=== PATIENT | female | born 1950 | race Hispanic/Latino ===

== ENCOUNTER → 2017-04-21 | Outpatient (CLI) | payer MEDICARE ==
--- NOTE | 2017-04-21 11:14 | Diagnostic Imaging Report ---
PROCEDURE: Frontal and lateral views of the chest. COMPARISON: None. INDICATIONS: WHEEZING, SOB FINDINGS: Lines/tubes: None. Lungs: The lungs are well inflated. Increased peripheral lung markings, likely fibrotic changes. Increased left basilar hazy opacification. Possible mild interstitial edema. Pleura: There is no pleural effusion or pneumothorax. Heart and mediastinum: Enlarged cardiomediastinal silhouette. Bones: No acute bony abnormality. Degenerative changes in the spine. IMPRESSION: Increased peripheral lung markings, suggestive of fibrotic changes. Possible mild interstitial edema. Increased left basilar hazy opacification which could represent atelectasis and/or pneumonia in the appropriate clinical setting. Dictated by: Yosi Sargent M.D. on 04/21/2017 at 11:23 Electronically approved by: Yosi Sargent M.D. on 04/21/2017 at 11:23
== END ==
LOC: RAD 10:13
PROVIDERS: ATTEND Family Medicine
DX: J20.9 Acute bronchitis, unspecified (principal)
CPT/HCPCS: 71046

== ENCOUNTER → 2017-11-16 | Outpatient (CLI) | payer MEDICARE ==
[~2017-11-16] MED LIST: IOPAMIDOL 370 MG/ML 200 ML INFUS..BTL INJ ONE; SODIUM CHLORIDE 0.9% 50ML 50 ML ONE
[2017-11-16 17:22] LABS: BLOOD UREA NITROGEN 12 mg/dL (7-26); BUN/CREATININE RATIO 17 (6-25); CREATININE, SERUM 0.72 mg/dL (0.57-1.11); EST GLOMERULAR FILTRATION RATE > 60 ML/MIN (60-)
--- NOTE | 2017-11-16 21:22 | Diagnostic Imaging Report ---
EXAMINATION: CT scan of the chest with contrast. TECHNIQUE: Helical CT images of the chest were performed from the lung apices to the level of the adrenal glands after the intravenous administration of 100 cc of Isovue 300. Coronal and sagittal reformatted images were obtained. Dose modulation, iterative reconstruction, and/or weight based adjustment of the mA/kV was utilized to reduce the radiation dose to as low as reasonably achievable. COMPARISON: None. CLINICAL HISTORY:Shortness of breath chest discomfort. DISCUSSION: LINES/TUBES: None. LUNGS AND AIRWAYS: Diffuse interstitial lung disease with architectural distortion, subpleural reticulations, scattered groundglass opacities, and subpleural honeycombing in the lower lung. PLEURA: No pneumothorax or pleural effusions. HEART AND MEDIASTINUM: The thyroid gland is normal. Heart size is normal.. LYMPH NODES: Prominent mediastinal lymph nodes. ABDOMEN: Abdomen unremarkable. BONES AND SOFT TISSUES: Skeletal hyperostosis. IMPRESSION: Diffuse interstitial pulmonary fibrosis with subpleural honeycombing. No pulmonary disease. Discussed with Dr. Mcdonald at approximately 7:30 PM. Signed by: Dr. Prem Ramirez M.D. on 11/16/2017 7:48 PM
== END ==
LOC: CT 16:43
PROVIDERS: ATTEND Family Medicine
DX: J96.01 Acute respiratory failure with hypoxia (principal)
CPT/HCPCS: 36415; 71260; 82565; 84520; Q9967